=== PATIENT | male | born 1965 | race Caucasian/White ===

== ENCOUNTER → 2017-02-01 | Day surgery (SDC) | payer BC ==
[~2017-02-01] MED LIST: RELPAX20 MG PO; UROCIT K PO
--- NOTE | ~2017-02-01 | OR ---
Unit #: [id number] #: [id number] Patient: VERONICA AZUL [id number] [facility] [address] [place], [place] [address] [id number] MR#: [id number] NAME: VERONICA AZUL ROOM: Date of Procedure: 02/01/2017 Admission Date: 02/01/2017 Surgeon: Mick Mccarthy M.D. : 1965 Attending Physician: Mick Mccarthy M.D. Referring Physician: Mick Mccarthy M.D. Primary Care Physician: Jocelyn Durham M.D. OPERATIVE REPORT PRIMARY CARE PHYSICIAN Dr. Jocelyn Durham. PREOPERATIVE DIAGNOSIS Family history of colon cancer, initial screening colonoscopy. POSTOPERATIVE DIAGNOSIS Normal colon and rectum. PROCEDURE PERFORMED Colonoscopy to cecum. ANESTHESIA Monitored anesthesia. INDICATIONS FOR PROCEDURE Mr. Azul is a 51-year-old gentleman with a family history of colon cancer. He was sent for his initial screening colonoscopy. DESCRIPTION OF PROCEDURE The patient was admitted to [facility], positively identified, and transported to the endoscopy suite. After appropriate monitoring and positioning, he was sedated by the nurse zig zag stitcher. On rectal examination, there was no local anorectal pathology. On digital examination, there were no palpable masses. The prostate was slightly enlarged, but no hard nodules were noted. Colonoscope was passed through the anal verge and throughout the extent of the colon to the cecum, where the appendiceal orifice and ileocecal valve were photo-documented. On both antegrade and retrograde visualization, no abnormalities were noted throughout. The patient tolerated the procedure well, was transported to Recovery in stable condition. At this time, I recommended that he will have a followup colonoscopy in 5 years due to his family history, and if it would again negative at 5 years, we go to 10 years. I discussed the findings with the patient's . Dictated by... Mick Mccarthy M.D. RS/nat Unit #: [id number] #: [id number] Patient: VERONICA AZUL TD: 02/02/2017 03:07 JOB #: [id number] CC: . OPERATIVE REPORT Page 1 of 1 X Mick Mccarthy MD PROCEDURE OPERATIVE NOTE
== END | disposition home or self-care (01) ==
LOC: COPS 05:49
DX: Z12.11 Encounter for screening for malignant neoplasm of colon (principal); K43.9 Ventral hernia without obstruction or gangrene; G43.909 Migraine, unspecified, not intractable, without status migrainosus; Z80.0 Family history of malignant neoplasm of digestive organs; Z87.19 Personal history of other diseases of the digestive system; Z87.442 Personal history of urinary calculi; Z98.890 Other specified postprocedural states
CPT/HCPCS: J2250